=== PATIENT | female | born 1940 | race Caucasian/White ===

== ENCOUNTER 2017-07-07 19:02 | Emergency (ER) | payer MEDICARE, BC ==
[2017-07-07] MEDS ORDERED: Acetaminophen/HYDROcodone 325-10 MG Tab PO ONE ×2 (19:03→20:14)
[2017-07-07 19:12] VITALS: BP 189/68
--- NOTE | 2017-07-07 19:29 | EDM.PDOC ---
ED HPI GENERAL MEDICAL PROBLEM - General Chief Complaint: Back Pain or Injury Stated Complaint: FELL. IN BY PRIVATE VEHICLE Time Seen by Provider: 07/07/17 19:25 Source of Information: Reports: Patient History Limitations: Reports: No Limitations - History of Present Illness INITIAL COMMENTS - FREE TEXT/NARRATIVE: states fell down steps landed onto left head denies LOC/N/V. c/o pain left head and upper back with prior h/o back problems. also family states Pt been c/o abd ' pain past few days. Pt states left lower abd' pain. Bilateral Back Pain Score (Numeric/FACES): 6 - Related Data Allergies Allergy/AdvReac Type Severity Reaction Status Date / Time lisinopril Allergy Cough Verified 07/07/17 19:05 Home Meds: Home Meds Atenolol [Tenormin] 50 mg PO DAILY 09/03/16 [History] Esomeprazole Magnesium [Nexium] 20 mg PO DAILY 09/29/16 [History] Nitroglycerin [IJP: Nitroglycerin] 1 tab SL ASDIRECTED PRN 09/29/16 [History] Past Medical History Cardiovascular History: Reports: Hypertension Gastrointestinal History: Reports: Diverticulosis - Past Surgical History GI Surgical History: Reports: Appendectomy, Cholecystectomy Musculoskeletal Surgical History: Reports: Other (See Below) Other Musculoskeletal Surgeries/Procedures:: back surgery Social & Family History - Family History Family Medical History: Noncontributory - Tobacco Use Smoking Status *Q: Former Smoker Used Tobacco, but Quit: Yes Month Tobacco Last Used: 160 Second Hand Smoke Exposure: No - Caffeine Use Caffeine Use: Reports: Coffee - Recreational Drug Use Recreational Drug Use: No ED ROS GENERAL - Review of Systems Review Of Systems: ROS reveals no pertinent complaints other than HPI. ED EXAM, UPPER BACK/NECK PAIN - Physical Exam Exam: See Below Exam Limited By: No Limitations General Appearance: Alert, WD/WN ( ), Mild Distress, Other (discomfort) Eye Exam: Bilateral Eye: PERRL (pupils ER @ 4mm) Ears Exam: Hearing Grossly Normal Nose Exam: Normal Inspection Throat/Mouth Exam: Normal Voice, No Airway Compromise Head Exam: Scalp Swelling, Scalp Tenderness, Other (left parietal no O/B) Neck Exam: Non-Tender, Full Range of Motion Nexus Criteria: No: Posterior, Midline Cervical Tenderness, Evidence of Intoxication, Altered Level of Consciousness, Focal Neurological Deficit, Painful Distraction Injuries Cardiovascular/Respiratory: Regular Rate, Rhythm GI/Abdominal: Soft, Tender, Other (minor left side discomfort LLQ region) Back Exam: Paraspinal Tenderness, Other (T5-6-7-8) Neurologic: No Motor/Sensory Deficits, Alert, Normal Mood/Affect, Oriented x 3 Psychiatric: Normal Affect, Normal Mood Skin Exam: Normal Color, Warm/Dry Lymphatic: No Adenopathy Course - Vital Signs Last Recorded V/S: Last Vital Signs Temp 36.8 C 07/07/17 19:07 Pulse 64 07/07/17 19:07 Resp 18 07/07/17 19:07 BP 189/68 H 07/07/17 19:07 Pulse Ox 96 07/07/17 19:07 - Orders/Labs/Meds Labs: Laboratory Tests 07/07/17 07/07/17 07/07/17 Range/Units 19:50 19:50 19:59 WBC 7.4 (5.0-10.0) 10^3/uL RBC 4.63 (4.2-5.4) 10^6/uL Hgb 13.8 (12.0-16.0) g/dL Hct 41.8 (37.0-47.0) % MCV 90.3 (80-100) fL MCH 29.8 (27.0-34.0) pg MCHC 33.0 (33.0-35.0) g/dL Plt Count 128 L (150-450) 10^3/uL Neut % (Auto) 71.5 (42.2-75.2) % Lymph % (Auto) 17.1 L (20.5-50.1) % [place] % (Auto) 8.9 H (2-8) % Eos % (Auto) 2.2 (1.0-3.0) % Baso % (Auto) 0.3 (0.0-1.0) % Sodium 136 (135-145) mmol/L Potassium 5.1 H (3.6-5.0) mmol/L Chloride 97 L (101-111) mmol/L Carbon Dioxide 27.0 (21.0-31.0) mmol/L Anion Gap 17.1 BUN 26 H (7-18) mg/dL Creatinine 1.2 (0.6-1.3) mg/dL Est Cr Clr Drug Dosing 31.04 mL/min Estimated GFR (MDRD) 44 BUN/Creatinine Ratio 21.66 Glucose 112 H (74-105) mg/dL Calcium 9.5 (8.4-10.2) mg/dl Total Bilirubin 0.8 (0.2-1.0) mg/dL AST 27 (10-42) IU/L ALT 20 (10-60) IU/L Alkaline Phosphatase 51 (42-121) IU/L Total Protein 7.8 (6.7-8.2) g/dl Albumin 4.3 (3.2-5.5) g/dl Globulin 3.5 Albumin/Globulin Ratio 1.23 Amylase 54 (28-100) U/L Lipase 35 (22-51) U/L Urine Color Yellow (YELLOW) Urine Appearance Slightly cloudy (CLEAR) Urine pH 5.5 (5.0-9.0) Ur Specific [place] 1.025 (1.005-1.030) Urine Protein 30 H (NEGATIVE) Urine Glucose (UA) 100 H (NEGATIVE) Urine Ketones 15 H (NEGATIVE) Urine Occult Blood Negative (NEGATIVE) Urine Nitrite Negative (NEGATIVE) Urine Bilirubin Moderate H (NEGATIVE) Urine Urobilinogen 0.2 (0.2-1.0) mg/dL Ur Leukocyte Esterase Small H (NEGATIVE) Urine RBC 5-10 H /HPF Urine WBC 10-20 H (0-5/HPF) /HPF Ur Epithelial Cells Moderate H /HPF Urine Bacteria Many H (0-FEW/HPF) /HPF Hyaline Casts Few H /LPF Urine Mucus Moderate H /LPF Meds: Medications Discontinued Medications Generic Name Dose Route Start Last Admin Trade Name Yvette PRN Reason Stop Dose Admin Hydrocodone Bitart/Acetaminophen 1 tab 07/07/17 20:14 07/07/17 20:34 [place] 325-10 Mg PO 07/07/17 20:15 1 tab ONETIME ONE Administration Ceftriaxone Sodium 1 gm/ 50 mls @ 100 mls/hr 07/07/17 20:25 07/07/17 20:37 Sodium Chloride IV 07/07/17 20:54 100 mls/hr ONETIME ONE Administration - Re-Assessments/Exams Free Text/Narrative Re-Assessment/Exam: 07/07/17 21:12 results discussed with pt & family. pt feeling better s/p PO Rx Departure - Departure Time of Disposition: 21:13 Disposition: Home, Self-Care 01 Condition: Good Clinical Impression: Concussion Qualifiers: Encounter type: initial encounter Loss of consciousness presence/duration: without LOC Qualified Code(s): S06.0X0A - Concussion without loss of consciousness, initial encounter Thoracic vertebral fracture Qualifiers: Encounter type: initial encounter Thoracic vertebra fracture level: T9 Fracture type: closed Fracture morphology: other fracture Qualified Code(s): S22.078A - Other fracture of T9-T10 vertebra, initial encounter for closed fracture UTI (urinary tract infection) Qualifiers: Urinary tract infection type: site unspecified Hematuria presence: without hematuria Qualified Code(s): N39.0 - Urinary tract infection, site not specified - Discharge Information Instructions: Vertebral Fracture, [id number] Forms: ED Department Discharge Additional Instructions: 1) bed rest as much as possible next 7 to 10 days 2) avoid bending lifting bending 3) drink lots of liquids for urinary track infection 4) follow up with family doctor 5) recheck if there is any change or concern rx given; keflex 250mg qid x 40 vicodin 5/325mg bid prn x 12
[2017-07-07] MEDS ORDERED: cefTRIAXone 1 GM in Sodium Chloride 0.9% 50 ML IV ONE (20:25)
[2017-07-07] MEDS ORDERED: Acetaminophen/HYDROcodone 325-10 MG Tab ONE (21:20)
== END 2017-07-07 21:30 | disposition home or self-care (01) ==
LOC: DL.ED 19:02
DX: S06.0X0A Concussion without loss of consciousness, initial encounter (principal); S22.078A Other fracture of T9-T10 vertebra, initial encounter for closed fracture; N39.0 Urinary tract infection, site not specified; I10 Essential (primary) hypertension; Z87.891 Personal history of nicotine dependence; W10.9XXA Fall (on) (from) unspecified stairs and steps, initial encounter; Z79.899 Other long term (current) drug therapy
CPT/HCPCS: 36415; 70450; 72125; 72128; 80053; 81001; 82150; 83690; 85025; 96365; 99284; A9270; J0696; J7050

== ENCOUNTER 2025-08-20 22:31 | Emergency (ER) | payer MEDICARE, BC ==
[2025-08-20] MEDS ORDERED: Sodium Chloride 0.9% 10 ML Syringe FLUSH PRN (22:53)
[2025-08-20 22:59] LABS: BASOPHILS PERCENT AUTO 0.2 % (0.0-1.0); EOSINOPHILS PERCENT AUTO 2.4 % (1.0-3.0); LYMPHOCYTES PERCENT AUTO 15.3 % (20.5-50.1); MONOCYTES PERCENT AUTO 8.5 % (2-8); NEUTROPHILS PERCENT AUTO 73.6 % (42.2-75.2); PLATELET COUNT,PLT 144 10^3/uL (150-450); RED BLOOD CELL COUNT 3.69 10^6/uL (4.2-5.4); WHITE BLOOD CELL COUNT,WBC 5.9 10^3/uL (5.0-10.0)
[2025-08-20 23:20] LABS: A/G RATIO 1.2; ALANINE AMINOTRANSFERASE,ALT 16 U/L (14-59); ASPARTATE AMNIOTRANSFERASE,AST 14 U/L (15-37); BILIRUBIN TOTAL 0.5 mg/dL (0.2-1.0); BLOOD UREA NITROGEN,BUN 40 mg/dL (7-18); CARBON DIOXIDE,CO2 24 mmol/L (21-32); CHLORIDE,CL 100 mmol/L (98-107); CREATININE 1.63 mg/dL (0.55-1.02); EST CRCL DRUG DOSING (CG) 20.08 mL/min; GLUCOSE RANDOM 106 mg/dL (70-99); POTASSIUM,K 4.1 mmol/L (3.5-5.1); PROTEIN TOTAL,TP 6.5 g/dL (6.4-8.2); SODIUM,NA 134 mmol/L (136-145); TSH ULTRASENSITIVE 2.48 uIU/mL (0.36-3.74)
[2025-08-20 23:21] LABS: ESTIMATED GFR 31 mL/min (>=60)
[2025-08-21] MEDS: Iopamidol 755 Mg/ML 100 ML Bottle IVPUSH ONE (00:47)
[2025-08-21 02:47] VITALS: BP 133/57; PULSE 65
== END 2025-08-21 03:25 | disposition home or self-care (01) ==
LOC: DL.ED 22:31
DX: R06.00 Dyspnea, unspecified (principal); I10 Essential (primary) hypertension; Z90.49 Acquired absence of other specified parts of digestive tract; Z88.8 Allergy status to other drugs, medicaments and biological substances; Z79.890 Hormone replacement therapy; Z79.899 Other long term (current) drug therapy
CPT/HCPCS: 36415; 71045; 71275; 80053; 83735; 83880; 84443; 84484; 85025; 85379; 86140; 93005; 99285; A9270; J7030; Q9967

== ENCOUNTER 2025-08-22 18:19 | Emergency (ER) | payer MEDICARE, BC ==
[2025-08-22] MEDS ORDERED: Sodium Chloride 0.9% 10 ML Syringe FLUSH PRN (18:42)
[2025-08-22 18:56] LABS: BASOPHILS PERCENT AUTO 0.2 % (0.0-1.0); EOSINOPHILS PERCENT AUTO 2.6 % (1.0-3.0); LYMPHOCYTES PERCENT AUTO 13.0 % (20.5-50.1); MONOCYTES PERCENT AUTO 8.8 % (2-8); NEUTROPHILS PERCENT AUTO 75.4 % (42.2-75.2); PLATELET COUNT,PLT 142 10^3/uL (150-450); RED BLOOD CELL COUNT 3.77 10^6/uL (4.2-5.4); WHITE BLOOD CELL COUNT,WBC 4.5 10^3/uL (5.0-10.0)
[2025-08-22 19:04] LABS: INR 1.1 (0.9-1.2); PTT,PARTIAL THROMBOPLSTIN TIME 26.8 SEC (22.0-34.0)
[2025-08-22 19:05] LABS: B-TYPE NATRIURETIC PEPTIDE,BNP 86.0 pg/ml (0-100)
[2025-08-22 19:08] LABS: A/G RATIO 1.2; ALANINE AMINOTRANSFERASE,ALT 14.0 U/L (14-59); ASPARTATE AMNIOTRANSFERASE,AST 19.0 U/L (15-37); BILIRUBIN TOTAL 0.6 mg/dL (0.2-1.0); BLOOD UREA NITROGEN,BUN 26.0 mg/dL (7-18); CARBON DIOXIDE,CO2 23.0 mmol/L (21-32); CHLORIDE,CL 96.0 mmol/L (98-107); CREATININE 1.35 mg/dL (0.55-1.02); EST CRCL DRUG DOSING (CG) 28.91 mL/min; ESTIMATED GFR 39.0 mL/min (>=60); GLUCOSE RANDOM 104.0 mg/dL (70-99); POTASSIUM,K 4.3 mmol/L (3.5-5.1); PROTEIN TOTAL,TP 6.5 g/dL (6.4-8.2); SODIUM,NA 132.0 mmol/L (136-145); TSH ULTRASENSITIVE 2.01 uIU/mL (0.36-3.74)
[2025-08-22 20:28] VITALS: BP 160/57; PULSE 59
== END 2025-08-22 20:34 | disposition home or self-care (01) ==
LOC: DL.ED 18:19
DX: I10 Essential (primary) hypertension (principal); R45.89 Other symptoms and signs involving emotional state; Z88.8 Allergy status to other drugs, medicaments and biological substances; Z79.890 Hormone replacement therapy; Z79.899 Other long term (current) drug therapy; Z90.49 Acquired absence of other specified parts of digestive tract
CPT/HCPCS: 36415; 71045; 80053; 83735; 83880; 84443; 84484; 85025; 85610; 85730; 93005; 99285; A9270-GY